=== PATIENT | female | born 1990 | race Caucasian/White ===

== ENCOUNTER 2019-02-26 16:21 | Outpatient (CLI) | payer MEDICAID, SELFPAY ==
--- NOTE | 2019-02-26 | US_ITS ---
WS: [id number] LEFT LOWER EXTREMITY VENOUS DOPPLER ULTRASOUND HISTORY: LEG PAIN COMPARISON: None available. Normal 2-D, Doppler and augmentation and compressibility throughout the lower extremity venous struct ures. Additional imaging through the proximal calf veins also reveal no thrombus. Limited evaluation of the greater saphenous vein is patent with no thrombus. US/ROR venous duplex LE LT IMPRESSION: No DVT LEFT lower extremity.
== END 2019-02-26 16:22 | disposition home or self-care (01) ==
LOC: RADOUTREAD 02-27 08:13
PROVIDERS: Family Provider Family Medicine; Visit Provider Nurse Practitioner
DX: M79.605 Pain in left leg (principal)

== ENCOUNTER 2021-11-17 07:39 | Emergency (ER) | payer SELFPAY ==
--- NOTE | 2021-11-17 07:43 | XR_ITS ---
WS: [id number] Exam: XR hand RT min 3V* [id number] Date/Time of Exam: 11/17/2021 7:44 AM Reason For Exam: ring finger injury There is a comminuted distal tuft fracture of the ring finger without significant displacement. Assoc iated soft tissue injury noted. No other fractures. No dislocation. XR/XR hand RT min 3V* [id number] IMPRESSION: 1. Nondisplaced distal tuft fracture of the ring finger with associated soft ti ssue injury.
[2021-11-17 07:58] VITALS: BP 146/96; PULSE 90; PULSE 91; RESP 18; TEMP 36.4; O2SAT 97
[2021-11-17] MEDS: lidocaine 2% INJ 20 mL INJECTION (08:30)
--- NOTE | 2021-11-17 08:39 | W.ED.EXTPRO ---
HPI - Extremity Problem General: Chief complaint: Extremity Injury, Upper Stated complaint: Right ring finger injury Time Seen by Provider: 11/17/21 07:55 Source: patient Mode of arrival: ambulatory Limitations: no limitations History of Present Illness: 31-year-old female presents to the ER today for right ring finger pain after smashing it in a door this morning. Patient reports it bled immediately and has had a throbbing pain since. Patient reports she did wash it immediately and then came to the ER. Patient reports pain with any movement. She rates her pain an 8 out of 10 at this time. Patient denies any prior injuries to the ring finger. Last tetanus shot is unknown. Review of Systems General: Reports: 10 or more systems reviewed and unremarkable except in HPI and below Physical Exam Const: COMMON NORMALS: average body habitus, patient oriented x3, no limitations, healthy appearing, alert and well nourished Resp: COMMON NORMALS: normal respiratory effort EFFORT & INSPECTION: Yes able to speak in complete sentences Cardio: COMMON NORMALS: regular rate and regular rhythm RATE: regular rate RHYTHM: regular rhythm Extremity: NARRATIVE EXTREMITY EXAM: Patient has a noted injury to the right ring finger. There is significant tenderness over the distal phalange E. There is also a laceration with active bleeding and nail damage. Patient's laceration goes under the nail. Neuro: COMMON NORMALS: patient oriented x3 SENSORIUM/ORIENTATION: Yes alert Psych: COMMON NORMALS: mental status grossly normal, Normal thought process present and cooperative THOUGHT PROCESS: Normal thought process present Skin: NARRATIVE SKIN EXAM: Patient has a laceration to the tip of the right ring finger that does go under the nail. Procedures Laceration Laceration 1: Site: hand (ring finger, distal tip) Side (If applicable): right Size (cm): 1 Description: other (avulsion/under nail laceration) Depth: simple, single layer Local Anesthetic: lidocaine 2% Amount of anesthesia used (mL): 2 Pre-repair: wound explored Skin layer closed with: other (ethilon) Size (cm): 3-0 Number of sutures: 1 Technique: simple, interrupted Course ED course: 31-year-old female presents to the ER today for right ring finger pain after an injury. Patient reports she shut in the car door this morning. She reports immediate bleeding and pain. We will get an x-ray as I suspect a fracture. Patient does have a laceration involving the nail of the right ring finger. We will fix that today given the active bleeding currently. Vital Signs: Vital signs: Vital Signs Temperature 97.5 F L 11/17/21 07:58 Pulse Rate 90 11/17/21 07:58 Respiratory Rate 18 11/17/21 07:58 Blood Pressure 146/96 11/17/21 07:58 Pulse Oximetry 97 11/17/21 07:58 Oxygen Delivery Me thod 11/17/21 07:58 MDM - Extremity (Nontraumatic) Medical Decision Making Imaging done of the right ring finger indicates a right fourth distal phalangeal fracture which would be considered open given the laceration over that part of the finger. The laceration involves area under the nail. To stop bleeding, we did cut part of the nail and put 1 suture in the distal tip of the finger. Patient did tolerate this well. We did a nerve block of the right ring finger and patient achieved good pain control. Patient will be given tramadol for pain. We will also do Augmentin given open fracture. We will also splint patient's finger given the fracture. Wound care was discussed, patient is to follow-up in 1 week for suture removal. Patient should wear the splint for 2 to 4 weeks. Return to the ER with any new or worsening symptoms. Patient verbalized understanding and was in agreement with the treatment plan. Lab Data Radiology Impressions Hand X-Ray 11/17/21 07:43 IMPRESSION: 1. Nondisplaced distal tuft fracture of the ring finger with associated soft tissue injury. Critical Care Time Critical Care Time: Critical Care Time: No Discharge Plan Discharge Patient Disposition: Home Clinical Impression: Open fracture of distal phalanx of right hand Laceration of right ring finger Qualifiers: Encounter type: initial encounter Damage to nail status: with damage Foreign body presence: without foreign body Qualified Code(s): S61.314A - Laceration without foreign body of right ring finger with damage to nail, initial encounter Condition: Stable Prescriptions: New amoxicillin-pot clavulanate 875-125 mg tablet 1 tab PO BID 10 Days Qty: 20 0RF tramadol 50 mg tablet 50 mg PO Q8H PRN (Reason: pain) Qty: 10 0RF Discharge Orders: Discharge ED (Routine); Ordered 11/17/21 Ordered By: Marleny Hoffman Referrals: Isreal Batista MD [Primary Care Provider] - Discharge Diet: Usual diet Discharge Activity: Increase activity as tolerated Patient Instructions: Opioid Safety, Pain Management Activity Restrictions/Additional Instructions: Wound care as discussed. Keep wound clean and dry and apply a clean dressing daily. Do not do this for 48 hours. Just clean with warm water and antibacterial soap. Wear finger splint to protect fractured finger. Take medications as prescribed. Follow-up with PCP in 7 to 10 days for suture removal. Return to the ER with any new or worsening symptoms. Coding Level of Care Code ED [employer]
[2021-11-17] MEDS: tetanus-dipt-pertussis 0.5 mL SDV IM (08:48)
== END 2021-11-17 08:51 | disposition home or self-care (01) ==
PROVIDERS: Emergency Provider Physician Assistant; PCP Family Medicine
DX: S62.634B Displaced fracture of distal phalanx of right ring finger, initial encounter for open fracture (principal); W23.0XXA Caught, crushed, jammed, or pinched between moving objects, initial encounter
CPT/HCPCS: 11730; 12001; 73130; 90471; 90715; 99283